=== PATIENT | female | born 1935 | race Caucasian/White ===

== ENCOUNTER → 2018-10-17 | Outpatient (CLI) | payer MEDICARE ==
--- NOTE | 2018-10-17 12:50 | Diagnostic Imaging Report ---
EXAMINATION: Magnetic resonance imaging of the left knee without intravenous contrast DATE: October 17, 2018. COMPARISON: None. INDICATION: 83-year-old female, left knee pain and swelling. No known recent injury. TECHNIQUE: Multiplanar, multisequence non contrast enhanced MR imaging was accomplished. FINDINGS: MENISCI: There is an oblique tear involving the body and posterior horn of the medial meniscus. There is radially oriented tear involving the posterior root attachment of the medial meniscus. The medial meniscus is extruded by 5 mm. There is a probable longitudinal horizontal type tear involving the anterior horn, body, posterior horn of the lateral meniscus. LIGAMENTS AND TENDONS: The anterior and posterior cruciate ligaments are intact. The medial collateral ligament is intact. The iliotibial band, mid third lateral capsular ligament, fibular collateral ligament, biceps femoris tendon and conjoined tendon are intact. The quadriceps tendon and patella ligament are intact. JOINT: There are broad areas of near full-thickness medial compartment joint space loss. The lateral and patellofemoral compartment cartilage is intact. There is a small knee joint effusion without identified intra-articular body or prominent synovitis. BONE: There is edema-like signal in the medial tibial plateau with lack of edema in the adjacent medial femoral condyle. This potentially could reflect a bone contusion or stress related marrow changes. There is no acute fracture. There are no pathognomonic signal changes of osteonecrosis. BURSAE AND SOFT TISSUES: There is a small partially ruptured Bowers's cyst. There is nonspecific prepatellar subcutaneous edema. IMPRESSION: 1. Oblique tear involving the body and posterior horn of the medial meniscus as well as radial tear of the posterior root attachment of the medial meniscus and 5 mm medial meniscal extrusion. 2. Probable longitudinal horizontal type tear involving the entire lateral meniscus. 3. Intact anterior and posterior cruciate ligaments. Additional ligaments and tendons are intact. 4. Severe medial compartment osteoarthritis. Small knee joint effusion without prominent synovitis or intra-articular body. 5. Small partially ruptured Bowers's cyst. 6. Edema-like signal in the medial tibial plateau most likely reflecting a bone contusion or stress related marrow changes. No acute fracture. Dictated by: Dictated on workstation # [id number]
== END ==
LOC: RAD 08:57
PROVIDERS: ATTEND Physician Assistant Medical
DX: M23.222 Derangement of posterior horn of medial meniscus due to old tear or injury, left knee (principal); M17.12 Unilateral primary osteoarthritis, left knee; M71.22 Synovial cyst of popliteal space [Baker], left knee
CPT/HCPCS: 73721

== ENCOUNTER 2022-06-14 05:34 | Outpatient (CLI) | payer MEDICARE ==
[~2022-06-14] VITALS: Ht 157.4 cm; Wt 54.5 kg
[2022-06-15] MEDS ORDERED: AMLO-251 PO (11:42)
[2022-06-15] MEDS ORDERED: CARV12.53 PO (11:42)
[2022-06-15] MEDS ORDERED: ROSU5TAB13 PO (11:42)
== END 2022-06-15 11:43 | disposition home or self-care (01) ==
LOC: PREOP 05:34
PROVIDERS: ATTEND Specialist
DX: Z01.818 Encounter for other preprocedural examination (principal)

== ENCOUNTER 2022-06-17 10:51 | Day surgery (SDC) | payer MEDICARE ==
[~2022-06-17] VITALS: Ht 157.4 cm; Wt 54.5 kg
[~2022-06-17 10:51] MED LIST: AMLO-251 PO; CARV12.53 PO; ROSU5TAB13 PO
[2022-06-17] MEDS ORDERED: POVIDONE (BETADINE) OPHTH SOLN 5% 30 ML OP ONE (11:00)
[2022-06-17] MEDS ORDERED: TIMOLOL MALEATE 0.5% 5 ML (TIMOPTIC) BTL OU PRN (11:00)
[2022-06-17] MEDS ORDERED: MOXIFLOXACIN OPHTH SOLN 5 MG/ML 0.3 ML SYRINGE OP ONE (11:00)
[2022-06-17] MEDS ORDERED: acetaZOLAMIDE ER 500 MG CAP (DIAMOX SEQUELS) PO ONE (11:00)
[2022-06-17] MEDS: TETRACAINE 0.5% OPHTH SOLN 4 ML BTL (SINGLE DOSE ONLY) OU PRN ×4 (11:08→11:27)
[2022-06-17] MEDS: TROPICAMIDE 1% OPH SOLN (MYDRIACYL) 15 ML BTL OP SCH ×3 (11:15→11:27)
[2022-06-17] MEDS: PHENYLEPHRINE 10% OPHTH (NEO-SYN) 5 ML BTL OU SCH ×3 (11:15→11:27)
[2022-06-17 11:29] VITALS: BP 125/50
--- NOTE | 2022-06-17 11:39 | Ophthalmologist Pre-Op Note ---
Pre-Operative Progress Note H&P Reviewed The H&P was reviewed, patient examined and no changes noted. Date H&P Reviewed: Jun 17, 2022 Time H&P Reviewed: 11:39 Pre-Op Dx Cataract, Right Eye MARNI SALEH MD Jun 17, 2022 11:39
[2022-06-17] MEDS ORDERED: MIDAZOLAM 2 MG/2 ML (VERSED) VIAL ONE (11:46)
--- NOTE | 2022-06-17 12:05 | Ophthalmology Operative Report ---
Cataract, Miotic Pupil PREOPERATIVE DIAGNOSIS: 1. Cataract Right Eye 2. Miotic Pupil POSTOPERATIVE DIAGNOSIS: 1. Cataract Right Eye 2. Miotic Pupil PROCEDURE: 1. Cataract removal and placement of posterior chamber implant, right eye 2. Pupillary expansion with malyugin ring SURGEON: Kody Saleh ANESTHESIA: Topical with sedation COMPLICATIONS: None ESTIMATED BLOOD LOSS: Minimal DESCRIPTION OF PROCEDURE: After proper informed consent was obtained, the patient, a 87 female, was taken to the Operating Room and the right eye was anesthetized with Tetracaine. The eye was then prepped and draped in the usual manner. A wire lid speculum was placed. A paracentesis was made at the left hand position. Preservative free lidocaine was injected into anterior chamber followed by viscoelastic. A clear corneal incision was made in the temporal position. The malyugin ring was injected into the anterior chamber and the pupil was dilated. A capsulorrhexis was preformed and the central nuclear and cortical material were removed. The posterior capsule was polished and Milan 25.0 AU00T0 IOL was placed into the capsular bag. The malyugin ring was removed. The residual viscoelastic was aspirated and the balanced saline solution was injected into the anterior chamber. Moxifloxacin was injected into the anterior chamber. The wound was checked and found to be water tight. The patient tolerated the procedure well without complications. KODY SALEH MD Jun 17, 2022 12:05
[2022-06-17 12:16] VITALS: BP 122/50
--- NOTE | 2022-06-17 14:12 | Anesthesia-General Post-Op ---
MAC Patient Condition Mental Status/LOC: Same as Preop Cardiovascular: Satisfactory Nausea/Vomiting: Absent Respiratory: Satisfactory Pain: Controlled Complications: Absent Post Op Complications Complications None Follow Up Care/Instructions Patient Instructions None needed. Anesthesiology Discharge Order Discharge Order Patient is doing well, no complaints, stable vital signs, no apparent adverse anesthesia problems. No complications reported per nursing. PRANAV ELLER CRNA Jun 17, 2022 14:12
== END 2022-06-17 12:18 | disposition home or self-care (01) ==
LOC: SDC 10:51
PROVIDERS: ATTEND Specialist
DX: H25.9 Unspecified age-related cataract (principal); H57.03 Miosis
CPT/HCPCS: 66982; V2632

== ENCOUNTER 2022-07-01 09:10 | Day surgery (SDC) | payer MEDICARE ==
[~2022-07-01] VITALS: Ht 157.4 cm; Wt 54.5 kg
[2022-07-01] MEDS ORDERED: MOXIFLOXACIN OPHTH SOLN 5 MG/ML 0.3 ML SYRINGE OP ONE (09:15)
[2022-07-01] MEDS ORDERED: TIMOLOL 0.5% (CATARACTS) 0.3 ML BTL OU PRN (09:15)
[2022-07-01] MEDS ORDERED: POVIDONE (BETADINE) OPHTH SOLN 5% 30 ML OP ONE (09:15)
[2022-07-01] MEDS: TETRACAINE 0.5% OPHTH SOLN 4 ML BTL (SINGLE DOSE ONLY) OU PRN ×4 (09:17→09:34)
[2022-07-01 09:22] VITALS: BP 127/56
[2022-07-01] MEDS: TROPICAMIDE 1% OPH SOLN (MYDRIACYL) 15 ML BTL OP SCH ×3 (09:24→09:34)
[2022-07-01] MEDS: PHENYLEPHRINE 10% OPHTH (NEO-SYN) 5 ML BTL OU SCH ×3 (09:24→09:34)
[2022-07-01] MEDS ORDERED: MIDAZOLAM 2 MG/2 ML (VERSED) VIAL ONE (09:37)
--- NOTE | 2022-07-01 09:41 | Ophthalmologist Pre-Op Note ---
Pre-Operative Progress Note H&P Reviewed The H&P was reviewed, patient examined and no changes noted. Date H&P Reviewed: Jul 01, 2022 Time H&P Reviewed: 09:41 Pre-Op Dx Cataract, Left Eye MARNI SALEH MD Jul 01, 2022 09:41
--- NOTE | 2022-07-01 10:08 | Ophthalmology Operative Report ---
Cataract, Miotic Pupil PREOPERATIVE DIAGNOSIS: 1. Cataract Left Eye 2. Miotic Pupil POSTOPERATIVE DIAGNOSIS: 1. Cataract Left Eye 2. Miotic Pupil PROCEDURE: 1. Cataract removal and placement of posterior chamber implant, left eye 2. Pupillary expansion with malyugin ring SURGEON: Kody Saleh ANESTHESIA: Topical with sedation COMPLICATIONS: None ESTIMATED BLOOD LOSS: Minimal DESCRIPTION OF PROCEDURE: After proper informed consent was obtained, the patient, a 87 female, was taken to the Operating Room and the left eye was anesthetized with Tetracaine. The eye was then prepped and draped in the usual manner. A wire lid speculum was placed. A paracentesis was made at the left hand position. Preservative free l idocaine was injected into anterior chamber followed by viscoelastic. A clear corneal incision was made in the temporal position. The malyugin ring was injected into the anterior chamber and the pupil was dilated. A capsulorrhexis was preformed and the central nuclear and cortical material were removed. The posterior capsule was polished and Milan 24.0 AU00T0 IOL was placed into the capsular bag. The myalgian ring was removed. The residual viscoelastic was aspirated and the balanced saline solution was injected into the anterior chamber. Moxifloxacin was injected into the anterior chamber. The wound was checked and found to be water tight. The patient tolerated the procedure well without complications. [Limbal Relaxing Incision placed ] [ ]mm at [ ]. KODY SALEH MD Jul 01, 2022 10:08
[2022-07-01 10:10] VITALS: BP 115/58
--- NOTE | 2022-07-01 12:52 | Anesthesia-General Post-Op ---
MAC Patient Condition Mental Status/LOC: Same as Preop Cardiovascular: Satisfactory Nausea/Vomiting: Absent Respiratory: Satisfactory Pain: Controlled Complications: Absent Post Op Complications Complications None Follow Up Care/Instructions Patient Instructions None needed. Anesthesiology Discharge Order Discharge Order Patient is doing well, no complaints, stable vital signs, no apparent adverse anesthesia problems. No complications reported per nursing. GUZMAN BAPTISTE CRNA Jul 01, 2022 12:52
[2022-07-01] MEDS ORDERED: acetaZOLAMIDE ER 500 MG CAP (DIAMOX SEQUELS) PO ONE (13:00)
== END 2022-07-01 10:17 | disposition home or self-care (01) ==
LOC: SDC 09:10
PROVIDERS: ATTEND Specialist
DX: H26.9 Unspecified cataract (principal); H57.03 Miosis
CPT/HCPCS: 66982; V2632

== ENCOUNTER 2022-12-12 05:21 | Emergency (ER) | payer MEDICARE ==
[~2022-12-12] VITALS: Ht 157.5 cm; Wt 36.3 kg
[2022-12-12 05:52] LABS: BASOPHILS # (AUTO) 0.1 10^3/uL (0.0-0.1); BASOPHILS % (AUTO) 0 % (0-10); EOSINOPHILS % (AUTO) 0 % (0-10); HEMATOCRIT 28 % (35-52); HEMOGLOBIN 9.6 g/dL (11.5-16.0); LYMPHOCYTES % (AUTO) 6 % (12-44); MEAN CORPUSCULAR HEMOGLOBIN 29 pg (25-34); MEAN CORPUSCULAR HGB CONC 34 g/dL (32-36); MEAN CORPUSCULAR VOLUME 86 fL (80-99); MEAN PLATELET VOLUME 9.4 fL (9.0-12.2); MONOCYTES # (AUTO) 0.9 10^3/uL (0.0-1.0); MONOCYTES % (AUTO) 5 % (0-12); NEUTROPHILS # (AUTO) 13.9 10^3/uL (1.8-7.8); NEUTROPHILS % (AUTO) 87 % (42-75); PLATELET COUNT 237 10^3/uL (130-400)
[2022-12-12 06:06] LABS: CALCIUM 8.5 MG/DL (8.5-10.1)
[2022-12-12 06:10] LABS: CREATININE SERUM 0.99 MG/DL (0.60-1.30)
[2022-12-12 06:12] LABS: MAGNESIUM 1.7 MG/DL (1.6-2.4)
[2022-12-12 06:15] LABS: BAND NEUTROPHILS 7 %; EOSINOPHILS % (MANUAL) 1 %; LYMPHOCYTES % (MANUAL) 2 %; MONOCYTES % (MANUAL) 2 %; NEUTROPHILS % (MANUAL) 88 %; RBC MORPH NORMAL
--- NOTE | 2022-12-12 06:24 | ED Fall/Injury ---
General Chief Complaint: Trauma-Non Activation Stated Complaint: FALL Nursing Triage Note: PT TO RM 7 [facility]IA [facility] FROM HOME W C/O DIARRHEA AND FALL WHEN STANDING TO GET OFF OF TOILET AT APPROX 0300 THIS AM, HIT HEAD, DENIES LOC. PT C/O RIGHT ARM PAIN AND BILAT HIP STIFFNESS, A&OX4, HARD OF HEARING. C-COLLAR IN PLACE UPON ARRIVAL TO ED. Source: patient, EMS Exam Limitations: no limitations (FABY COCHRAN MD) History of Present Illness Date Seen by Provider: December 12, 2022 Time Seen by Provider: 05:25 Initial Comments This 87-year-old woman presents to the emergency room via [facility] after having a fall in her home. She was found on the floor in the bathroom by EMS. She was alert and oriented. She is a difficult historian simply because she is extremely hard of hearing. Patient denies any injury to her head or neck but there is an abrasion on her forehead with contusion. Patient states she was getting up from the toilet after having diarrhea and fell. She denies feeling lightheaded or dizzy. She denies loss of consciousness. Vital signs were unremarkable per EMS except for oxygen saturation of 90% on room air. She does not normally wear oxygen at home. Nasal cannula was applied by EMS which promptly resuscitated her oxygen saturation into the upper 90s. Patient has a very wet sounding cough which she states is from chronic bronchitis and unchanged. She complains of some aching around her hips after the fall but has no apparent injury on exam. Patient lives at home with her elderly who also fell while EMS was at the home. He declined evaluation or transfer. Patient's elderly sister lives across the street. They have no other family support in town. She arrives in [facility]. Location Injury Occurred: PT HOME (FABY COCHRAN MD) Allergies and Home Medications Allergies Coded Allergies: No Known Drug Allergies (Unverified , 06/15/22) Patient Home Medication List Home Medication List Reviewed: Yes (FABY COCHRAN MD) Amlodipine Besylate (Amlodipine Besylate) 10 Mg Tablet, 10 MG PO DAILY, (Reported) Entered as Reported by: BETH SULLIVAN on 06/15/22 1142 Carvedilol (Carvedilol) 12.5 Mg Tablet, 12.5 MG PO BID, (Reported) Entered as Reported by: BETH Trell NATE on 06/15/22 1142 Doxycycline Hyclate (Doxycycline Hyclate) 100 Mg Tablet, 100 MG PO BID Prescribed by: CHARLENE ZHAO on 12/12/22 0702 Potassium Chloride (Potassium Chloride) 20 Meq Tablet.er, 20 MEQ PO DAILY Prescribed by: CHARLENE ZHAO on 12/12/22 0702 Rosuvastatin Calcium (Rosuvastatin Calcium) 5 Mg Tablet, 5 MG PO DAILY, (Reported) Entered as Reported by: BETH Trell NATE on 06/15/22 1142 Review of Systems Review of Systems Constitutional: no symptoms reported Eyes: No Symptoms Reported Ears, Nose, Mouth, Throat: see HPI Respiratory: no symptoms reported Cardiovascular: see HPI Gastrointestinal: see HPI Genitourinary: no symptoms reported Musculoskeletal: see HPI Skin: see HPI Psychiatric/Neurological: No Symptoms Reported (FABY COCHRAN MD) Past Ebiltys-Pjyxrb-Wpuspb Hx Patient Social History Tobacco Use?: No Use of E-Cig and/or Vaping dev: No Substance use?: No Alcohol Use?: No (FABY COCHRAN MD) Immunizations Up To Date Influenza Vaccine Up-to-Date: Yes; Up-to-Date First/Initial COVID19 Vaccinat: 2020 Second COVID19 Vaccination Lonnie: 2020 Third COVID19 Vaccination Date: 2021 COVID19 Vaccine Roll Tension Tester: Azzure ITA X3 (FABY COCHRAN MD) Past Medical History Surgery/Hospitalization HX: HTN, HIGH CHOLESTEROL, CHRONIC BRONCHITIS/COUGH Surgeries: No (None reported) Respiratory: Yes Chronic Bronchitis (With chronic cough) Cardiac: Yes High Cholesterol, Hypertension Neurological: No : No Reproductive Disorders: No Genitourinary: No Gastrointestinal: No Musculoskeletal: No Endocrine: No HEENT: No Hearing Impairment: Hard of Hearing Cancer: No Psychosocial: No Integumentary: No (FABY COCHRAN MD) Physical Exam Vital Signs Vital Signs - First Documented 12/12/22 05:25 Temp 37.3 Pulse 77 Resp 18 B/P (MAP) 106/43 (64) Pulse Ox 98 O2 Delivery Nasal Cannula O2 Flow Rate 2.00 (CHARLENE ZHAO MD) Vital Signs Capillary Refill : Less Than 3 Seconds (FABY COCHRAN MD) Height, Weight, BMI Height: '" Weight: lbs. oz. kg; 14.00 BMI Method: General Appearance: WD/WN, no apparent distress, thin (Extremely thin) HEENT: PERRL/EOMI, normal ENT inspection Neck: normal inspection, other (C-collar in place) Cardiovascular: regular rate, rhythm, no edema, systolic murmur Respiratory: lungs clear, normal breath sounds, no respiratory distress Gastrointestinal: non tender, soft; No distended Extremities: non-tender, normal inspection, other (No tenderness over the hips and no pain with rotation of the hips) Neurologic/Psychiatric: no motor/sensory deficits, alert, normal mood/affect, oriented x 3 Skin: normal color, warm/dry (FABY COCHRAN MD) Angella Coma Score Best Eye Response: (4) Open Spontaneously Best Verbal Response: (5) Oriented Best Motor Response: (6) Obeys Commands [place] Total: 15 (FABY COCHRAN MD) Progress/Results/Core Measures Results/Orders Lab Results Laboratory Tests Test 12/12/22 05:39 12/12/22 06:02 Range/Units White Blood Count 16.0 H 4.3-11.0 10^3/uL Red Blood Count 3.30 L 3.80-5.11 10^6/uL Hemoglobin 9.6 L 11.5-16.0 g/dL Hematocrit 28 L 35-52 % Mean Corpuscular Volume 86 80-99 fL Mean Corpuscular Hemoglobin 29 25-34 pg Mean Corpuscular Hemoglobin Concent 34 32-36 g/dL Red Cell Distribution Width 13.8 10.0-14.5 % Platelet Count 237 130-400 10^3/uL Mean Platelet Volume 9.4 9.0-12.2 fL Immature Granulocyte % (Auto) 1 % Neutrophils (%) (Auto) 87 H 42-75 % Lymphocytes (%) (Auto) 6 L 12-44 % Monocytes (%) (Auto) 5 0-12 % Eosinophils (%) (Auto) 0 0-10 % Basophils (%) (Auto) 0 0-10 % Neutrophils # (Auto) 13.9 H 1.8-7.8 10^3/uL Lymphocytes # (Auto) 1.0 1.0-4.0 10^3/uL Monocytes # (Auto) 0.9 0.0-1.0 10^3/uL Eosinophils # (Auto) 0.0 0.0-0.3 10^3/uL Basophils # (Auto) 0.1 0.0-0.1 10^3/uL Immature Granulocyte # (Auto) 0.1 0.0-0.1 10^3/uL Neutrophils % (Manual) 88 % Lymphocytes % (Manual) 2 % Monocytes % (Manual) 2 % Eosinophils % (Manual) 1 % Band Neutrophils 7 % Blood Morphology Comment NORMAL Sodium Level 127 L 135-145 MMOL/L Potassium Level 3.0 L 3.6-5.0 MMOL/L Chloride Level 94 L 98-107 MMOL/L Carbon Dioxide Level 21 21-32 MMOL/L Anion Gap 12 5-14 MMOL/L Blood Urea Nitrogen 12 7-18 MG/DL Creatinine 0.99 0.60-1.30 MG/DL Estimat Glomerular Filtration Rate 55 BUN/Creatinine Ratio 12 Glucose Level 108 H 70-105 MG/DL Calcium Level 8.5 8.5-10.1 MG/DL Magnesium Level 1.7 1.6-2.4 MG/DL (CHARLENE ZHAO MD) My Orders Orders - CHARLENE ZHAO MD Doxycycline Hyclate Tablet (Vibramycin T (12/12/22 07:08) Potassium Chloride (Tablet) (K Dur Table (12/12/22 07:15) (CHARLENE ZHAO MD) Vital Signs/I&O 12/12/22 05:25 Temp 37.3 Pulse 77 Resp 18 B/P (MAP) 106/43 (64) Pulse Ox 98 O2 Delivery Nasal Cannula O2 Flow Rate 2.00 (CHARLENE ZHAO MD) Blood Pressure Mean: 64 Progress Progress Note : Time: 06:25 Progress Note Patient was interviewed and examined. Labs are pending. EKG shows a right bundle branch block. There is no STEMI. There is ST depression with no prior for comparison. Rhythm is sinus. Chest x-ray was viewed by me. By my interpretation there are chronic appearing interstitial changes as well as a possible nodular density in the right lower lung. Pelvis x-ray revealed no acute bony injuries by my interpretation. Care of this patient is being transitioned to Dr. Zhao at this time at shift change. (FABY COCHRAN MD) Progress Note : Progress Note Labs are significant for mild hypokalemia with potassium of 3, normal creatinine, elevated white blood cell count, and she has normocytic anemia with unclear chronicity given she has not been here before. CT head and cervical spine negative for acute abnormalities other than she does appear to have sinusitis. Chest x-ray and pelvis x-ray also negative by the radiologist read. Patient will be given oral potassium. I question whether to give her antibiotics for the sinusitis, however given the leukocytosis, will opt to treat her. She does appear to be at her baseline. Went up with the patient off oxygen and had her some deep breaths, her oxygen went up to 92% from any. I offered the patient admission to the hospital given her relative stability, and she states that she would prefer to be at home. Given her age, thinness, and chronic appearing nature, I will go forward with the patient's wishes and discharge her. The patient likely could qualify for hospice, and I believe having more time at home where she is comfortable would be appropriate since that is her wish. I believe she is otherwise stable for discharge with outpatient follow-up. She was sent home with strict return precautions. (CHARLENE ZHAO MD) Initial ECG Impression Date: December 12, 2022 Initial ECG Impression Time: 06:01 Initial ECG Rate: 70 Initial ECG Rhythm: Normal Sinus Comment Sinus rhythm with no ST elevation. There is right bundle branch block with minimal ST depression. There is no prior for comparison. No significant axis deviation. (FABY COCHRAN MD) Diagnostic Imaging Diagonstic Imaging: Xray (chest and pelvis), CT (head and c spine) Comments NAME: AINSLEY SHIPLEY [facility] REC#: [id number] PT STATUS: REG ER : 1935 PHYSICIAN: FABY COCHRAN MD ADMIT DATE: 12/12/22/ER Draft Date of Exam:12/12/22 CT HEAD/CERVICAL SPINE WO PROCEDURE: CT head and CT cervical spine without contrast. TECHNIQUE: Multiple contiguous axial images were obtained through the brain and cervical spine without the use of intravenous contrast. Sagittal and coronal reformations through the cervical spine were then performed. Auto Exposure Controls were utilized during the CT exam to meet ALARA standards for radiation dose reduction. INDICATION: Head and neck pain after fall. FINDINGS: There is prominence of the ventricles and sulci. There are some chronic microvascular ischemic disease. There is no hydrocephalus. There is no mass, hemorrhage or extra-axial fluid collection. There is opacification of the right frontal sinus, right sphenoid sinus, left sphenoid sinus and left maxillary sinus and to lesser degree right maxillary sinus. There is also fluid in the left mastoid air cells. The alignment of cervical spine is normal. The vertebral body heights are well-maintained. There is no fracture or traumatic subluxation. Odontoid is intact and lateral masses are well aligned. The prevertebral soft tissues are within normal limits. There is some posterior facet arthropathy. The lung apices are clear. IMPRESSION: Atrophy and some chronic microvascular ischemic disease however no acute intracranial abnormality. Pansinusitis. Mild cervical spondylosis without acute fracture or traumatic subluxation. Dictated on workstation # [id number] Dict: 12/12/2242 Trans: 12/12/22 0650 REYNALDO [id number] Interpreted by: ANGELIC RONDON MD Electronically signed by: [facility] [place] [place] NAME: AINSLEY SHIPLEY [facility] REC#: [id number] PT STATUS: REG ER : 1935 PHYSICIAN: FABY COCHRAN MD ADMIT DATE: 12/12/22/ER Signed Date of Exam:12/12/22 CHEST 1 VIEW, AP/PA ONLY Indication: Shortness of breath, hypoxemia Portable chest 6:11 AM Heart size and pulmonary vascularity are normal. There is some atelectasis at the lung bases. There are no appreciable effusions or pneumothoraces. IMPRESSION: Volume loss at the lung bases. Dictated by: Dictated on workstation # [id number] Dict: 12/12/2238 Trans: 12/12/22639 TCB [id number] Interpreted by: MARIA LUISA MADDEN MD Electronically signed by: MARIA LUISA MADDEN MD 12/12/22639 [facility] [place], [place] NAME: AINSLEY SHIPLEY [facility] REC#: [id number] PT STATUS: REG ER : 1935 PHYSICIAN: FABY COCHRAN MD ADMIT DATE: 12/12/22/ER Signed Date of Exam:12/12/22 PELVIS 1 TO 2 VIEWS Indication: Pelvic pain from a fall AP view pelvis does not show any appreciable fracture or dislocation. IMPRESSION: Negative pelvis Dictated by: Dictated on workstation # [id number] Dict: 12/12/2240 Trans: 12/12/22640 TCB [id number] Interpreted by: MARIA LUISA MADDEN MD Electronically signed by: MARIA LUISA MADDEN MD 12/12/22640 (CHARLENE ZHAO MD) Departure Impression Primary Impression: Fall on same level Qualified Codes: W18.30XA - Fall on same level, unspecified, initial encounter Additional Impressions: Diarrhea Qualified Codes: R19.7 - Diarrhea, unspecified Underweight Forehead contusion Qualified Codes: S00.83XA - Contusion of other part of head, initial encounter Hypoxia Sinusitis Qualified Codes: J32.1 - Chronic frontal sinusitis Hypokalemia Disposition: 01 HOME, SELF-CARE Condition: Stable Departure-Patient Inst. Decision time for Depature: 07:05 (CHARLENE ZHAO MD) Referrals: [place] [facility] (PCP/Family) Primary Care Physician Patient Instructions: Minor Head Injury, Adult ED, Diarrhea, Adult ED Add. Discharge Instructions: It does not appear like you have any significant injury including nothing is broken. It does look like when we did a CT scan of your head, you do have sinusitis or an infection in your sinuses. You will be on antibiotics for the next week. Your potassium was also low, so you will be on potassium for the ne xt week as well. Please follow-up with your regular doctor in the next week. Scripts Potassium Chloride (Potassium Chloride) 20 Meq Tablet.er 20 MEQ PO DAILY for 7 Days, #7 TAB Prov: CHARLENE ZHAO MD 12/12/22 Doxycycline Hyclate (Doxycycline Hyclate) 100 Mg Tablet 100 MG PO BID for 7 Days, #14 TAB 0 Refills Prov: CHARLENE ZHAO MD 12/12/22 Copy Copies To 1: [facility]/FABY HILL MD December 12, 2022 06:24 CHARLENE ZHAO MD December 12, 2022 07:02
--- NOTE | 2022-12-12 06:41 | Diagnostic Imaging Report ---
Indication: Shortness of breath, hypoxemia Portable chest 6:11 AM Heart size and pulmonary vascularity are normal. There is some atelectasis at the lung bases. There are no appreciable effusions or pneumothoraces. IMPRESSION: Volume loss at the lung bases. Dictated by: Dictated on workstation # [id number]
--- NOTE | 2022-12-12 06:42 | Diagnostic Imaging Report ---
Indication: Pelvic pain from a fall AP view pelvis does not show any appreciable fracture or dislocation. IMPRESSION: Negative pelvis Dictated by: Dictated on workstation # [id number]
--- NOTE | 2022-12-12 06:52 | Diagnostic Imaging Report ---
PROCEDURE: CT head and CT cervical spine without contrast. TECHNIQUE: Multiple contiguous axial images were obtained through the brain and cervical spine without the use of intravenous contrast. Sagittal and coronal reformations through the cervical spine were then performed. Auto Exposure Controls were utilized during the CT exam to meet ALARA standards for radiation dose reduction. INDICATION: Head and neck pain after fall. FINDINGS: There is prominence of the ventricles and sulci. There are some chronic microvascular ischemic disease. There is no hydrocephalus. There is no mass, hemorrhage or extra-axial fluid collection. There is opacification of the right frontal sinus, right sphenoid sinus, left sphenoid sinus and left maxillary sinus and to lesser degree right maxillary sinus. There is also fluid in the left mastoid air cells. The alignment of cervical spine is normal. The vertebral body heights are well-maintained. There is no fracture or traumatic subluxation. Odontoid is intact and lateral masses are well aligned. The prevertebral soft tissues are within normal limits. There is some posterior facet arthropathy. The lung apices are clear. IMPRESSION: Atrophy and some chronic microvascular ischemic disease however no acute intracranial abnormality. Pansinusitis. Mild cervical spondylosis without acute fracture or traumatic subluxation. Dictated by: Dictated on workstation # [id number]
[2022-12-12] MEDS ORDERED: DOXY100T2 PO (07:02)
[2022-12-12] MEDS ORDERED: POTA-51 PO (07:02)
[2022-12-12] MEDS ORDERED: DOXYCYCLINE 100 MG (VIBRAMYCIN) TABLET PO STA (07:08)
[2022-12-12 07:10] VITALS: BP 125/50
[2022-12-12] MEDS ORDERED: KCL 20 MEQ TAB (K-DUR) PO ONE (07:15)
== END 2022-12-12 07:21 | disposition home or self-care (01) ==
LOC: EDUNIT# 05:21 → ER 05:23
DX: S00.83XA Contusion of other part of head, initial encounter (principal); E87.6 Hypokalemia; J32.9 Chronic sinusitis, unspecified; R09.02 Hypoxemia; R19.7 Diarrhea, unspecified; I45.10 Unspecified right bundle-branch block; R63.6 Underweight; Z68.1 Body mass index [BMI] 19.9 or less, adult; W18.30XA Fall on same level, unspecified, initial encounter; Y92.002 Bathroom of unspecified non-institutional (private) residence as the place of occurrence of the external cause
CPT/HCPCS: 36415; 70450; 71045; 72125; 72170; 80048; 83735; 85007; 85027; 87636; 93005; 93041